=== PATIENT | male | born 1950 | race Caucasian/White ===

== ENCOUNTER → 2016-05-01 | Outpatient (CLI) | payer MEDICARE | END | disposition home or self-care (01) | LOC: PCVCIMAG 08:07 | PROVIDERS: ATTEND Nuclear Medicine Nuclear Cardiology | DX: I70.261 Atherosclerosis of native arteries of extremities with gangrene, right leg (principal); Z95.820 Peripheral vascular angioplasty status with implants and grafts; Z95.5 Presence of coronary angioplasty implant and graft | CPT/HCPCS: 93923; 93925; 93931; 93978; 93924 ==

== ENCOUNTER → 2016-05-05 | Outpatient (CLI) | payer MEDICARE | END | disposition home or self-care (01) | LOC: PCVCCLINIC 13:46 | PROVIDERS: ATTEND Nuclear Medicine Nuclear Cardiology | DX: I73.9 Peripheral vascular disease, unspecified (principal); I77.9 Disorder of arteries and arterioles, unspecified; I77.1 Stricture of artery; I10 Essential (primary) hypertension; E78.00 Pure hypercholesterolemia, unspecified; F10.10 Alcohol abuse, uncomplicated | CPT/HCPCS: G0463 ==

== ENCOUNTER → 2018-04-01 | Outpatient (CLI) | payer MEDICARE ==
--- NOTE | 2018-04-01 11:45 | PCVCIMAG ---
EXAM: BILATERAL CAROTID DUPLEX INDICATION: Carotid Occlusive Disease. FINDINGS: Doppler Measurements (centimeters per second): RIGHT: Peak CCA-99, Peak ECA-173, Diastolic ICA-40, Peak ICA-117, ICA/CCA Ratio-1.2. LEFT: Peak CCA-123, Peak ECA-222, Diastolic ICA-30, Peak ICA-111, ICA/CCA Ratio-0.9. RIGHT CAROTID: The carotid bulb has mild plaque. The proximal internal carotid artery shows <40% stenosis. The common carotid artery shows no significant stenosis. The external carotid artery shows 60% stenosis. LEFT CAROTID: The carotid bulb has mild plaque. The proximal internal carotid artery shows <40% stenosis. The common carotid artery shows no significant stenosis. The external carotid artery shows 70% stenosis. Retrograde flow left vertebral artery concerning for significant left subclavian artery stenosis. Antegrade flow right vertebral artery. IMPRESSION: <40% stenosis of the right internal carotid artery with mild plaque. <40% stenosis of the left internal carotid artery with mild plaque. Retrograde flow left vertebral artery concerning for significant proximal left subclavian artery stenosis. LOC:[id number]
--- NOTE | 2018-04-01 11:54 | PCVCIMAG ---
EXAM: ARTERIAL DUPLEX LEFT UPPER EXTREMITY INDICATION: Peripheral arterial disease. Previous left subclavian stent. Known occlusion proximal left vertebral artery. FINDINGS: Left arm: Increased systolic velocity of 440 cm/s proximal left subclavian artery within prior stent consistent with 80% restenosis. Mid and distal subclavian artery is patent. The axillary, brachial, radial, and ulnar arteries are patent. IMPRESSION: 80% restenosis proximal left subclavian artery within prior stent. LOC:[id number]
--- NOTE | 2018-04-01 12:04 | PCVCIMAG ---
EXAM: BILATERAL LOWER EXTREMITY ARTERIAL DUPLEX INDICATION: Peripheral Arterial Disease. Leg pain. FINDINGS: Right Leg: Common femoral and profunda femoral arteries are patent. Increased systolic velocity distal [place] superficial femoral artery consistent with 40-50% stenosis. The popliteal artery patent. 40-50% stenosis at the origin of the posterior tibial artery and peroneal artery. The anterior tibial artery is patent. Left Leg: Satisfactory arterial waveforms throughout the common/profunda/superficial femoral, popliteal, anterior tibial, peroneal, and posterior tibial arteries. No flow limiting stenosis seen. IMPRESSION: 40-50% stenosis distal [place] right superficial femoral artery. 40-50% stenosis at the origins of the left posterior tibial artery and peroneal artery. No flow limiting stenosis in the left lower extremity. LOC:[id number]
--- NOTE | 2018-04-01 12:13 | PCVCIMAG ---
EXAM: AORTOILIAC DUPLEX INDICATION: Peripheral arterial disease FINDINGS: AORTA: Suprarenal aorta measures maximum diameter of 2.7 cm. There is not a fusiform infrarenal aortic aneurysm. The infrarenal aorta measures maximum diameter of 1.9 cm. No aortic stenosis. RIGHT COMMON ILIAC ARTERY: Maximum diameter is 1.2 cm. No significant stenosis. RIGHT EXTERNAL ILIAC ARTERY: No significant stenosis. LEFT COMMON ILIAC ARTERY: Maximum diameter is 1.2 cm. No significant stenosis. LEFT EXTERNAL ILIAC ARTERY: No significant stenosis. IMPRESSION: No abdominal aortic aneurysm. No aortoiliac stenosis seen. Previous right iliac stent maintaining satisfactory patency. LOC:[id number]
== END | disposition home or self-care (01) ==
LOC: PCVCIMAG 09:56
PROVIDERS: ATTEND Nuclear Medicine Nuclear Cardiology
DX: I65.23 Occlusion and stenosis of bilateral carotid arteries (principal); I73.9 Peripheral vascular disease, unspecified; I77.9 Disorder of arteries and arterioles, unspecified
CPT/HCPCS: 93880; 93925; 93931; 93978

== ENCOUNTER → 2018-04-05 | Outpatient (CLI) | payer MEDICARE | END | disposition home or self-care (01) | LOC: PCVCCLINIC 10:47 | PROVIDERS: ATTEND Nuclear Medicine Nuclear Cardiology | DX: I73.9 Peripheral vascular disease, unspecified (principal); I77.1 Stricture of artery; I77.9 Disorder of arteries and arterioles, unspecified; I10 Essential (primary) hypertension; E78.00 Pure hypercholesterolemia, unspecified; F10.10 Alcohol abuse, uncomplicated; Z87.891 Personal history of nicotine dependence; Z79.82 Long term (current) use of aspirin | CPT/HCPCS: 36415; G0463 ==

== ENCOUNTER → 2018-04-11 | Outpatient (CLI) | payer MEDICARE ==
[~2018-04-11] MED LIST: CLOPIDOGREL BISULFATE 75 MG TABLET ONE; DIAZEPAM 10 MG TABLET. ONE; HEPARIN for SUB-Q USE 5,000 UNIT/ML VIAL. SQ ONE; IODIXANOL 270 MG/ML 100 ML VIAL. ONE; IV NORMAL SALINE 1000ML BAG 1,000 ML ONE; LIDOCAINE 1%/EPI 1:100,000 20 ML VIAL. ONE; MIDAZOLAM HCL/PF 2 MG/2 ML VIAL. ONE; fentaNYL PF VIAL 100 MCG/2 ML VIAL ONE; hydrALAZINE 20 MG/ML VIAL. ONE
--- NOTE | 2018-04-11 12:39 | PCVCINTER ---
EXAM: 1. AORTOGRAM AND BILATERAL LOWER EXTREMITY RUNOFF ANGIOGRAM 2. BILATERAL RENAL ANGIOGRAPHY 3. CERVICAL CEPHALIC ARCH AORTOGRAM. 4. LEFT UPPER EXTREMITY ANGIOGRAM. 5. DRUG COATED BALLOON ANGIOPLASTY LEFT SUBCLAVIAN ARTERY. INDICATION: Peripheral arterial disease. Left subclavian steal. Restenosis left subclavian artery stent. Coronary artery disease. Leg pain. Hypertension. Renal atherosclerosis. No prior catheter based angiographic study is available. A full diagnostic angiogram study is performed today and the decision to intervene is based on this diagnostic study. PROCEDURE: Procedure and risks of angiography intervention is appropriate including limb loss stroke and were discussed with the patient's family and consent obtained. The patient's left groin was prepped in the normal sterile fashion. IV conscious sedation was used throughout procedure with appropriate monitoring from 10:30 AM through 12:00 PM. Ultrasound was used to interrogate the left groin and showed the left common femoral artery to be patent. A permanent spot film was obtained. Under ultrasound guidance access into the left common femoral artery was obtained and a 5 [place]gas[place] sheath was placed. Through this a 5 [place]gas[place] flush catheter was placed to the level of the ascending aorta and cervical cephalic arch aortogram performed. Catheter was repositioned into the abdominal aorta at the level of the renal arteries and AP aortogram was performed. Catheter was positioned at the aortic bifurcation and both oblique views of the pelvis were obtained. Catheter was positioned into the left external iliac artery and left leg runoff angiography was performed. Catheter was exchanged for a visceral catheter was placed into the right renal arteries and right renal angiograms obtained. Catheter was placed into the the left renal arteries and left renal angiograms were obtained. Catheter was advanced to the level of the right external iliac artery and right leg runoff angiography was obtained. Catheter was placed into the proximal left subclavian artery left subclavian/upper extremity angiogram obtained. Patient was given 4000 units of heparin. A 6 Monegasque sheath was placed via the left groin to the level of the proximal left subclavian artery. Following this drug coated balloon angioplasty of the left subclavian artery was carried out with a 6 x 80 Meet [employer] Leticia Fabiano FOREPART REDUCER catheter. Next a 7 x 4 FOREPART REDUCER catheter was used to perform angioplasty throughout the proximal/mid left subclavian artery within prior stent. Follow-up angiogram was performed. Catheters and wires removed. Sheath was removed and hemostasis obtained using the FISH device. No immediate complications. FINDINGS: Aortogram: There is one right and one left renal artery. Mild plaque infrarenal abdominal aorta without significant stenosis. Pelvis: Previous stents in the right common and external iliac artery showing good patency. The left common and external iliac artery shows good patency. Both internal iliac arteries are patent. The right and left common femoral and profunda femoral arteries are patent. Right renal artery: Minimal plaque proximal vessel does not cause significant stenosis. Left renal artery: Mild plaque proximal vessel does not cause significant stenosis. Right leg: Scattered plaque throughout the superficial femoral artery without significant stenosis. The popliteal artery is patent. 60% stenosis proximal posterior tibial artery. Otherwise satisfactory three-vessel runoff. The posterior tibial artery is the dominant runoff vessel. Left le% tapered stenosis [place] superficial femoral artery. 50% stenosis mid/upper popliteal artery. Three-vessel runoff into the foot with the posterior tibial artery being dominant. Cervical cephalic arch aortogram: There is a common origin of the innominate artery and left common carotid artery which is widely patent. The right vertebral artery is dominant and shows good patency. The left vertebral artery shows occlusion in its lower cervical portion. Both common carotid arteries are patent. Both internal mammary arteries are patent. Left upper extremity and gram: Previous stent proximal subclavian artery shows mild restenosis. There is a short gap and then another stent is present showing areas of 70-80% stenosis within the uncovered portion of subclavian artery and within the second stent. The distal subclavian artery and axillary arteries are patent. Left subclavian artery: Following procedure as above good patency has been restored throughout the prior stents in the proximal/mid left subclavian artery. IMPRESSION: 80% restenosis proximal/mid left subclavian artery within prior stent as detailed above was treated as above with good patency restored. 60% stenosis [place] left superficial femoral artery to 50% stenosis [place] left popliteal artery. 60% stenosis proximal right posterior tibial artery. LOC:[id number]
== END | disposition home or self-care (01) ==
LOC: PCVCINTER 09:00
PROVIDERS: ATTEND Nuclear Medicine Nuclear Cardiology
DX: I70.1 Atherosclerosis of renal artery (principal); I25.10 Atherosclerotic heart disease of native coronary artery without angina pectoris; I70.8 Atherosclerosis of other arteries; I77.1 Stricture of artery; I10 Essential (primary) hypertension; I70.0 Atherosclerosis of aorta; I70.293 Other atherosclerosis of native arteries of extremities, bilateral legs; F10.10 Alcohol abuse, uncomplicated; E78.00 Pure hypercholesterolemia, unspecified; Z85.828 Personal history of other malignant neoplasm of skin; Z98.890 Other specified postprocedural states; Z82.49 Family history of ischemic heart disease and other diseases of the circulatory system; Z87.891 Personal history of nicotine dependence; Z72.89 Other problems related to lifestyle; Z79.899 Other long term (current) drug therapy; Z79.82 Long term (current) use of aspirin; I87.1 Compression of vein
CPT/HCPCS: 36215; 36252; 37246; 75710; 75716; 76937; 99152; 99153; C1725; C1751; C1760; C1769; C1894; J0360; J1644; J2250; J3010; J3490; J7030; Q9967; 36221; 36246; J0690

== ENCOUNTER → 2018-05-11 | Outpatient (CLI) | payer MEDICARE ==
[~2018-05-11] MED LIST changes: -CLOPIDOGREL BISULFATE 75 MG TABLET ONE; -DIAZEPAM 10 MG TABLET. ONE; -HEPARIN for SUB-Q USE 5,000 UNIT/ML VIAL. SQ ONE; -IODIXANOL 270 MG/ML 100 ML VIAL. ONE; -IV NORMAL SALINE 1000ML BAG 1,000 ML ONE; -LIDOCAINE 1%/EPI 1:100,000 20 ML VIAL. ONE; -MIDAZOLAM HCL/PF 2 MG/2 ML VIAL. ONE; +REGADENOSON 0.4 MG/5 ML DISP.SYRIN. IV ONE; -fentaNYL PF VIAL 100 MCG/2 ML VIAL ONE; -hydrALAZINE 20 MG/ML VIAL. ONE
--- NOTE | 2018-05-11 11:05 | PCVCIMAG ---
APPROVED REPORT Study performed: 05/11/2018 09:16:34 Indication: Dyspnea Patient Location: Out-Patient Stress Nurse: Graciela Oscar RN, Audelia Jaimes RN [place] Tech:Danika FLETCHER Pizarro Ht: 5 ft 7 in Wt: 165 lbs BSA: 1.86 m2 HR: 83 bpm BP: 143/77 mmHg BMI: 25.84 Rhythm: Normal Sinus Rhythm Medical History Medical History: HTN, Hyperlipidemia, CVD, PVD, Former Smoker Medications: ASA, Atorvastatin, Plavix, Lisinopril Allergies: No known drug allergies Cardiac Risk Factors: Age Pretest Chest Pain Characteristics: No chest pain Exercise History: Physically active Resting Data Rest SPECT myocardial perfusion imaging was performed in supine position 45 minutes following the intravenous injection of 10.1 mCi of Tc-99m Sestamibi. Time of rest injection: 829 Date: 05/11/2018 Administration Route: IV Administration Site: Right Hand Pharmacologic Stress Pharmacologic stress test was performed by injecting Regadenoson 0.4 mg IV push over 10-15 seconds immediately followed by the intravenous injection of 32.7 mCi of Tc-99m Sestamibi. Time of stress injection: 944 Date: 05/11/2018 Administration Route: IV Administration Site: Right Hand Gated Stress SPECT was performed 45 minutes after stress injection. The images were gated to evaluate regional wall motion and calculate left ventricular ejection fraction. Stress Test Details Stress Test: Pharmacologic stress was paired with low level exercise. Reason for pharmacologic stress test: fatigue. HRMax Heart Rate (APMHR): 154 bpm Resting HR: 83 bpmTarget HR (85% APMHR): 130 bpm Max HR Achieved: 121 bpm % of APMHR: 78 Recovery HR: 104 bpm BP Resting BP: 143/77 mmHg Max BP: 186/84 mmHg Recovery BP: 165/74 mmHg ECG Resting ECG: Normal Sinus Rhythm Stress ECG: Sinus Tachycardia ST Change: Non-ischemic Arrhythmia: VPC's Recovery ECG: Sinus Tachycardia Clinical Reason for Termination: Completed protocol Stress Symptoms: Dyspnea Exercise duration: 4 min 00 sec Exercise capacity: 1.6 METs Symptoms resolved during recovery. Study Quality Study: Good Study Data Post stress, the left ventricular ejection was 78%.. SSS: 0 SRS: 0 SDS: 0 TID = 86.00. Perfusion Normal left ventricular perfusion. Normal perfusion on both the stress and rest images. Wall Motion Normal left ventricular wall motion. Nuclear Conclusion ECG Findings: negative for ischemia Clinical Findings: non-diagnostic Nuclear Findings: negative for ischemia Exercise Capacity: not assessed Left Ventricular Function: normal Risk Study: low This study is of low probability for inducible ischemia or prior infarct. Normal global and segmental LV systolic function.
== END | disposition home or self-care (01) ==
LOC: PCVCIMAG 07:53
PROVIDERS: ATTEND Internal Medicine Cardiovascular Disease
DX: R06.09 Other forms of dyspnea (principal); I10 Essential (primary) hypertension; I73.9 Peripheral vascular disease, unspecified; E78.00 Pure hypercholesterolemia, unspecified; Z79.82 Long term (current) use of aspirin; Z87.891 Personal history of nicotine dependence
CPT/HCPCS: 78452; 93017; A9500; G0463; J2785

== ENCOUNTER → 2018-06-08 | Outpatient (CLI) | payer MEDICARE | END | disposition home or self-care (01) | LOC: PCVCCLINIC 11:08 | PROVIDERS: ATTEND Internal Medicine Cardiovascular Disease | DX: I10 Essential (primary) hypertension (principal); E78.00 Pure hypercholesterolemia, unspecified | CPT/HCPCS: 36415 ==

== ENCOUNTER → 2018-08-19 | Outpatient (CLI) | payer MEDICARE ==
--- NOTE | 2018-08-19 11:11 | PCVCIMAG ---
EXAM: ARTERIAL DUPLEX LEFT UPPER EXTREMITY INDICATION: Peripheral arterial disease. Previous left subclavian artery stent with DCB ReVision. FINDINGS: Left arm: Normal arterial waveforms throughout the subclavian, axillary, brachial, radial, and ulnar arteries. No evidence of flow-limiting arterial stenosis. Previous left subclavian artery stents maintaining satisfactory patency. IMPRESSION: No evidence of flow-limiting arterial stenosis in the left upper extremity as detailed above. Systolic blood pressure right arm 140 mmHg and in the left arm 146 mmHg. LOC:[id number]
--- NOTE | 2018-08-19 11:13 | PCVCIMAG ---
EXAM: LEFT LOWER EXTREMITY ARTERIAL DUPLEX INDICATION: Peripheral Arterial Disease. Leg pain. FINDINGS: Left Leg: Satisfactory arterial waveforms throughout the common/profunda/superficial femoral, popliteal, anterior tibial, peroneal, and posterior tibial arteries. No flow limiting stenosis seen. IMPRESSION: No flow limiting stenosis in the left lower extremity. LOC:[id number]
== END | disposition home or self-care (01) ==
LOC: PCVCIMAG 07:53
PROVIDERS: ATTEND Internal Medicine Cardiovascular Disease
DX: I73.9 Peripheral vascular disease, unspecified (principal); E78.00 Pure hypercholesterolemia, unspecified; I77.1 Stricture of artery
CPT/HCPCS: 93926; 93931

== ENCOUNTER → 2018-11-09 | Outpatient (CLI) | payer MEDICARE ==
--- NOTE | 2018-11-09 10:37 | PCVCIMAG ---
APPROVED REPORT Study performed: 11/09/2018 10:08:37 EXAM: Comprehensive 2D, Doppler, and color-flow Echocardiogram Patient Location: Echo lab Status: routine BSA: 1.85 HR: 90 bpmBP: 140/80 mmHg Rhythm: NSR Other Information Study Quality: Adequate Risk Factors: Cardiac Risk Factors: HTN, Hyperlipidemia Indications Hypertension/HDD PAD 2D Dimensions IVSd: 9.37 (7-11mm)LVOT Diam: 18.54 (18-24mm) LVDd: 32.87 mm PWd: 9.78 (7-11mm)Ascending Ao: 26.54 (22-36mm) LVDs: 26.97 (25-40mm) Left Atrium: 30.94 (27-40mm) Aortic Root: 28.93 mm LV Single Plane 4CH: 43.82 % Volumes Left Atrial Volume (Systole) Single Plane 4CH: 20.94 mLSingle Plane 2CH: 23.18 mL LA ESV Index: 13.00 mL/m2 Aortic Valve AoV Peak Leoncio.: 1.37 m/s AO Peak Gr.: 7.56 mmHgLVOT Max P.12 mmHg LVOT Max V: 1.13 m/s LEO Vmax: 2.22 cm2 Mitral Valve E/A Ratio: 0.7 MV Decel. Time: 202.65 ms MV E Max Leoncio.: 0.64 m/s MV A Leoncio.: 0.96 m/s IVRT: 141.87 ms TDI E/Lateral E': 8.00E/Medial E': 9.14 Medial E' Leoncio.: 0.07 m/s Lateral E' Leoncio.: 0.08 m/s Pulmonary Valve PV Peak Gr.: 4.64 mmHg Pulmonary Vein P Vein S: 0.71 m/sP Vein A: 0.28 m/s P Vein D: 0.38 m/sP Vein A Dur.: 69.2 msec P Vein S/D Ratio: 1.87 Left Ventricle The left ventricle is normal size. There is normal LV segmental wall motion. There is normal left ventricular wall thickness. Left ventricular systolic function is normal. The left ventricular ejection fraction is within the normal range. LVEF is 55-60%. Grade I - abnormal relaxation pattern. Right Ventricle The right ventricle is normal size. The right ventricular systolic function is normal. Atria The left atrium size is normal. The right atrium size is normal. Aortic Valve The aortic valve is normal in structure. No aortic regurgitation is present. There is no aortic valvular stenosis. Mitral Valve The mitral valve is normal in structure. There is no mitral valve regurgitation noted. No evidence of mitral valve stenosis. Tricuspid Valve The tricuspid valve is normal in structure. There is no tricuspid valve regurgitation noted. Pulmonic Valve The pulmonary valve is normal in structure. There is no pulmonic valvular regurgitation. Great Vessels The aortic root is normal in size. IVC is normal in size and collapses >50% with inspiration. Pericardium There is no pericardial effusion. <Conclusion> The left ventricle is normal size. There is normal left ventricular wall thickness. Left ventricular systolic function is normal. Grade I - abnormal relaxation pattern. The right ventricle is normal size. The left atrium size is normal. The aortic valve is normal in structure. There is no mitral valve regurgitation noted. There is no tricuspid valve regurgitation noted.
== END | disposition home or self-care (01) ==
LOC: PCVCIMAG 10:50
PROVIDERS: ATTEND Internal Medicine Cardiovascular Disease
DX: I10 Essential (primary) hypertension (principal); R06.00 Dyspnea, unspecified; E78.00 Pure hypercholesterolemia, unspecified; I73.9 Peripheral vascular disease, unspecified
CPT/HCPCS: 93005; 93306; G0463